=== PATIENT | female | born 1955 | race Caucasian/White ===

== ENCOUNTER 2018-04-08 13:00 | Outpatient (CLI) | payer OTHER, SELFPAY ==
--- NOTE | 2018-04-08 11:34 | DI.RAD_ITS ---
SYMPTOMS/DIAGNOSIS: ACUTE LT KNEE PAIN, POSSIBLE MENISCAL TEAR, M25.562 LEFT KNEE: Three views were obtained. There are slight degenerative changes of the joints of knee. No other abnormality is seen.
== END 2018-04-08 13:20 ==
PROVIDERS: PCP Nurse Practitioner Family; Visit Provider Family Medicine
DX: M25.562 Pain in left knee (principal)
CPT/HCPCS: 73562

== ENCOUNTER 2018-07-01 00:31 | Outpatient (CLI) | payer OTHER, SELFPAY ==
--- NOTE | 2018-07-01 07:45 | DI.MAMMO_ITS ---
SYMPTOM/DIAGNOSIS: SCREENING, Z12.31 BILATERAL SCREENING MAMMOGRAM: Mammograms were interpreted according to the usual protocol including computer analysis with CAD system, tomosynthesis and C view imaging. Comparison is made with exams from 2010 through 2016. The breasts are composed of scattered fibroglandular densities, breast density Category B. No suspicious masses or suspicious microcalcifications are seen. There has been no significant change. IMPRESSION: Category 1-B, negative mammogram. Yearly screening mammography is recommended. [facility] ASSESSMENT OF FINDINGS: Negative. Category 1. Patient will receive a letter notifying them of these results. BI-RADS category B. There are scattered areas of fibroglandular density.
== END 2018-07-01 00:51 ==
PROVIDERS: PCP Nurse Practitioner Family; Visit Provider Nurse Practitioner Family
DX: Z12.31 Encounter for screening mammogram for malignant neoplasm of breast (principal)
CPT/HCPCS: 77063; 77067

== ENCOUNTER 2019-01-01 10:17 | Outpatient (CLI) | payer OTHER, SELFPAY ==
[2019-01-01 10:55] LABS: Abs Immature Grans 0.03 k/cumm (0.0-0.09); Absolute Basophil Count 0.04 k/cumm (0.0-0.2); Absolute Eosinophil Count 0.12 k/cumm (0.0-0.7); Absolute Lymphocyte Count 2.46 k/cumm (1.2-3.4); Absolute Monocyte Count 0.49 k/cumm (0.11-0.7); Absolute Neutrophil Count 6.68 k/cumm (1.2-6.7); Basophils % 0.4; Eosinophils % 1.2; HCT 42.9 % (36.0-46.0); HGB 14.6 g/dL (12.0-15.5); Immature Grans % 0.3; Lymphocytes % 25.1; Mean Corpuscular Volume 88.1 fL (80-95); Mean Platelet Volume 9.7 fL (8.0-11.0); Platelet Count 271 x1000/uL (130-400); RBC 4.87 m/cumm (4.00-5.20); RBC Distribution Width 12.4 % (11.7-14.6); White Blood Cell Count 9.82 k/cumm (4.4-10.8)
[2019-01-01 11:43] LABS: ALT 28 U/L (12-78); AST 16 U/L (15-37); Albumin 3.7 g/dL (3.4-5.0); Alkaline Phosphatase 81 U/L (46-116); Anion Gap 7.6 mmol/L (3-11); BUN 28 mg/dL (7-18); Bilirubin, Total 0.3 mg/dL (0.2-1.0); CO2 29.4 mmol/L (21.0-32.0); COMMENT (LAB VIEW ONLY) 128.05 mg/dL; CREATININE 0.99 mg/dL (0.55-1.02); Calcium 8.9 mg/dL (8.5-10.1); Chloride 102 mmol/L (98-107); Cholesterol 120 mg/dL (50-200); Estimated GFR 56.47 (mL/min/1.73m2); Glucose 129 mg/dL (70-100); HDL Cholesterol 39 mg/dL (40-60); LDL CHOLESTEROL 58 mg/dL (<100); Microalb ug/mg Crea 10.1 ug/mg Cr; Potassium 4.5 mmol/L (3.5-5.1); Sodium 139 mmol/L (136-145); Total Protein 6.8 g/dL (6.4-8.2); Triglyceride 159 mg/dL (30-150)
[2019-01-01 11:45] LABS: Hemoglobin A1C 6.9 % (4.5-6.2)
== END 2019-01-01 10:37 ==
PROVIDERS: PCP Nurse Practitioner Family; Visit Provider Nurse Practitioner Family
DX: E78.5 Hyperlipidemia, unspecified (principal); E11.22 Type 2 diabetes mellitus with diabetic chronic kidney disease; N18.3 Chronic kidney disease, stage 3 (moderate)
CPT/HCPCS: 36415; 80053; 80061; 83721; 82043; 82570; 83036; 85025

== ENCOUNTER 2019-07-07 01:11 | Outpatient (CLI) | payer OTHER, SELFPAY ==
--- NOTE | 2019-07-07 12:09 | DI.MAMMO_ITS ---
EXAM: MG MAMMO SCREENING CLINICAL HISTORY: screening, Z12.39 TECHNIQUE: Bilateral full field digital CC and MLO mammographic images were obtained with 3D tomosyn thesis and utilizing computer aided detection (CAD). COMPARISON: Available for comparison. FINDINGS: Masses/Architectural Distortion: Scattered stable nodular densities are seen in both breasts. No dionicio picious masses are present. Microcalcifications: No suspicious pleomorphic-type are seen. Skin Thickening/Nipple Retraction: None. IMPRESSION: 1. No significant interval change with no specific features of malignancy noted. 2. Unless there is more urgent need, screening mammography is recommended, as per [employer] guidelines. ACR BI-RAD Category- 1 Negative Breast Density - Category B - Scattered areas of fibroglandular density A negative radiographic report should not delay biopsy if a dominant or clinically suspicious mass is present. Up to ten percent of cancers are not identified on mammography. A negative report may reinforce clinical impression. Adenosis and dense breasts may obscure an underlying neoplasm. False positive reports average 6 to 10%. Patient will receive a letter notifying them of these results.
== END 2019-07-07 01:31 ==
PROVIDERS: PCP Nurse Practitioner Family; Visit Provider Nurse Practitioner Family
DX: Z12.31 Encounter for screening mammogram for malignant neoplasm of breast (principal)
CPT/HCPCS: 77063; 77067

== ENCOUNTER 2019-08-14 12:53 | Outpatient (REF) | payer MEDICARE, BC, SELFPAY | END 2019-08-14 13:13 | LOC: LBN 12:53 | PROVIDERS: PCP Nurse Practitioner Family; Visit Provider Family Medicine | DX: R50.9 Fever, unspecified (principal) | CPT/HCPCS: 87449 ==

== ENCOUNTER 2020-01-07 03:33 | Outpatient (CLI) | payer MEDICARE, BC, SELFPAY ==
[2020-01-07 10:17] LABS: Hemoglobin A1C 7.2 % (3.8-5.6)
[2020-01-07 10:36] LABS: COMMENT (LAB VIEW ONLY) 175.95 mg/dL; Microalb ug/mg Crea 12.4 ug/mg Cr
[2020-01-07 11:12] LABS: Anion Gap 5.1 mmol/L (3-11); BUN 16 mg/dL (7-18); CO2 29.9 mmol/L (21.0-32.0); CREATININE 1.04 mg/dL (0.55-1.02); Calcium 9.1 mg/dL (8.5-10.1); Calculated LDL 40 mg/dL (<100); Chloride 103 mmol/L (98-107); Cholesterol 123 mg/dL (<200); Estimated GFR 53.18 (mL/min/1.73m2); Glucose 185 mg/dL (74-106); HDL Cholesterol 40 mg/dL (40-60); Potassium 4.8 mmol/L (3.5-5.1); Sodium 138 mmol/L (136-145); Triglyceride 216 mg/dL (<150)
== END 2020-01-07 03:53 ==
PROVIDERS: PCP Nurse Practitioner Family; Visit Provider Nurse Practitioner Family
DX: E78.5 Hyperlipidemia, unspecified (principal); E11.9 Type 2 diabetes mellitus without complications
CPT/HCPCS: 36415; 80048; 80061; 82043; 82570; 83036

== ENCOUNTER 2020-05-18 01:39 | Outpatient (CLI) | payer MEDICARE, BC, SELFPAY ==
--- NOTE | 2020-05-18 06:30 | DI.US_ITS ---
EXAM: US ABDOMEN CLINICAL HISTORY: RUQ abd pain, known fatty liver,r10.11 TECHNIQUE: Ultrasound abdomen performed using standard protocol. COMPARISON: No exams were available for comparison FINDINGS: ABDOMINAL AORTA AND IVC: Visualized portions normal caliber. PANCREAS: Normal where visualized. LIVER: There is diffuse increased echogenicity of the liver consistent with fatty infiltration. Hepa topedal flow in the Portal Vein. The liver measures 14.4 cm. GALLBLADDER: Status post cholecystectomy. BILIARY SYSTEM: Common bile duct measures < 7 mm. No intrahepatic biliary ductal dilation. KIDNEYS: Kidneys are symmetric in size. No evidence of renal calculi. No evidence of hydronephrosis. No renal mass or cyst identified. SPLEEN: Not enlarged. ASCITES: None seen. IMPRESSION: 1. Hepatic steatosis. 2. Status post cholecystectomy. No biliary ductal dilatation. DATA REPOSITORY:
== END 2020-05-18 01:59 ==
PROVIDERS: PCP Nurse Practitioner Family; Visit Provider Family Medicine
DX: R10.11 Right upper quadrant pain (principal); K76.0 Fatty (change of) liver, not elsewhere classified
CPT/HCPCS: 36415; 80076; 83690; 76700; 85025

== ENCOUNTER 2020-05-18 02:12 | Outpatient (CLI) | payer MEDICARE, BC, SELFPAY ==
[2020-05-18 07:49] LABS: Abs Immature Grans 0.04 10^3/uL (0.0-0.06); Absolute Basophil Count 0.04 10^3/uL (0.0-0.2); Absolute Eosinophil Count 0.12 10^3/uL (0.0-0.7); Absolute Lymphocyte Count 2.47 10^3/uL (1.2-3.4); Absolute Neutrophil Count 6.72 10^3/uL (1.2-6.7); Basophils % 0.4; Eosinophils % 1.2; HCT 42.4 % (36.0-46.0); HGB 14.2 g/dL (11.2-15.7); Immature Grans % 0.4; MCH 29.3 pg (27.0-33.0); MCHC 33.5 % (32.0-36.0); MCV 87.4 fL (80-95); MPV 9.5 fL (8.0-11.0); Monocytes % 5.1; Neutrophils % 67.9; Nucleated RBC 0 %; Platelet Count 249 10^3/uL (130-400); RBC 4.85 10^6/uL (3.93-5.22); RDW 11.8 % (11.7-14.6); RDW-SD 37.8 fL; WBC 9.89 10^3/uL (4.4-10.8)
[2020-05-18 08:34] LABS: ALT 23 U/L (14-59); AST 15 U/L (15-37); Albumin 3.6 g/dL (3.4-5.0); Alkaline Phosphatase 81 U/L (46-116); Bilirubin, Direct 0.09 mg/dL (0.00-0.20); Bilirubin, Total 0.4 mg/dL (0.2-1.0); Lipase 151 U/L (73-393); Total Protein 6.6 g/dL (6.4-8.2)
== END 2020-05-18 02:32 ==
PROVIDERS: PCP Nurse Practitioner Family; Visit Provider Nurse Practitioner Family
DX: R10.11 Right upper quadrant pain (principal)
CPT/HCPCS: 36415; 80076; 83690; 85025

== ENCOUNTER 2020-05-25 02:59 | Outpatient (CLI) | payer MEDICARE, BC, SELFPAY ==
[2020-05-25 10:23] LABS: Iron 71 ug/dL (50-170); Total Iron Binding Capacity 310 ug/dL (250-450); Transferrin Sat 23 % (15-50)
[2020-05-25 10:36] LABS: Ferritin 85 ng/mL (8-252)
[2020-05-26 09:36] LABS: HBs Antibody, Quant <3.1 mIU/mL (See Note); Hepatitis B Surface Ab Negative (See Note)
[2020-05-26 09:50] LABS: Hepatitis B Surface Ag Negative (Negative)
[2020-05-26 10:47] LABS: Hep A Total Ab w Rflx IgM Negative (Negative)
== END 2020-05-25 03:19 ==
PROVIDERS: PCP Nurse Practitioner Family; Visit Provider Nurse Practitioner Family
DX: K76.0 Fatty (change of) liver, not elsewhere classified (principal); Z11.59 Encounter for screening for other viral diseases
CPT/HCPCS: 36415; 86706; 86709; 87340; 82728; 83540; 83550; 86704

== ENCOUNTER 2021-04-19 02:49 | Outpatient (CLI) | payer MEDICARE, BC, SELFPAY ==
[2021-04-19 09:47] LABS: Abs Immature Grans 0.07 10^3/uL (0.0-0.06); Absolute Basophil Count 0.04 10^3/uL (0.0-0.2); Absolute Eosinophil Count 0.11 10^3/uL (0.0-0.7); Absolute Lymphocyte Count 2.23 10^3/uL (1.2-3.4); Absolute Neutrophil Count 6.39 10^3/uL (1.2-6.7); Basophils % 0.4; Eosinophils % 1.2; HCT 44.4 % (36.0-46.0); HGB 14.5 g/dL (11.2-15.7); Immature Grans % 0.7; Lymphocytes % 23.9; MCH 29.6 pg (27.0-33.0); MCHC 32.7 % (32.0-36.0); MCV 90.6 fL (80-95); MPV 9.6 fL (8.0-11.0); Monocytes % 5.4; Neutrophils % 68.4; Nucleated RBC 0 %; Platelet Count 257 10^3/uL (130-400); RDW 11.9 % (11.7-14.6); RDW-SD 39.7 fL; WBC 9.34 10^3/uL (4.4-10.8)
[2021-04-19 09:55] LABS: Hemoglobin A1C 7.2 % (<5.7)
[2021-04-19 09:56] LABS: Prothrombin Time 9.8 sec (9.3-11.0)
[2021-04-19 11:23] LABS: COMMENT (LAB VIEW ONLY) 34.59 mg/dL; Microalb ug/mg Crea 8.1 ug/mg Cr
[2021-04-19 11:30] LABS: ALT 33 U/L (14-59); AST 18 U/L (15-37); Albumin 4.1 g/dL (3.4-5.0); Alkaline Phosphatase 97 U/L (46-116); Anion Gap 11.4 mmol/L (3-11); BUN 21 mg/dL (7-18); Bilirubin, Total 0.5 mg/dL (0.2-1.0); CO2 25.6 mmol/L (21.0-32.0); CREATININE 1.1 mg/dL (0.55-1.02); Calcium 9.1 mg/dL (8.5-10.1); Calculated LDL 32 mg/dL (<100); Chloride 102 mmol/L (98-107); Cholesterol 142 mg/dL (<200); Estimated GFR 49.69 (mL/min/1.73m2); Glucose 170 mg/dL (74-106); HDL Cholesterol 42 mg/dL (40-60); Potassium 4.9 mmol/L (3.5-5.1); Sodium 139 mmol/L (136-145); Total Protein 7.4 g/dL (6.4-8.2); Triglyceride 340 mg/dL (<150)
== END 2021-04-19 02:50 | disposition home or self-care (01) ==
LOC: LBO 02:49
PROVIDERS: PCP Nurse Practitioner Family; Visit Provider Nurse Practitioner Family
DX: E11.22 Type 2 diabetes mellitus with diabetic chronic kidney disease; E78.5 Hyperlipidemia, unspecified; K76.0 Fatty (change of) liver, not elsewhere classified; N18.30 Chronic kidney disease, stage 3 unspecified
CPT/HCPCS: 36415; 80053; 80061; 82043; 82570; 83036; 85025; 85610

== ENCOUNTER 2021-07-07 00:15 | Outpatient (CLI) | payer MEDICARE, BC, SELFPAY ==
--- NOTE | 2021-07-07 07:15 | DI.DEXA_ITS ---
Exam(s) XR DEXA BONE DENSITY W/WO BIBIANA EXAM: XR DEXA BONE DENSITY W/WO BIBIANA CLINICAL HISTORY: SCREENING FOR OSTEOPOROSIS IN POSTMENOPAUSAL WOMAN, Z78.0,Z13.820 TECHNIQUE: COMPARISON: Comparison examination is 12/13/2009. FINDINGS: Lateral Spine Image: Unremarkable. No compression deformities identified. Left hip: Total T-Score: 0.0. This compares to 0.7 on the prior examination. Total Z-Score: 1.3 T- and Z-scores: Within normal limits. Lumbar Spine: Total T-Score: 0.1. This compares to 0.2 on the prior examination. Total Z-Score: 2.0 T- and Z-scores: Within normal limits. Note is made of osteopenia in the left forearm with a total T-score of -2.4 and a Z-score of -0.6. IMPRESSION: No evidence of osteoporosis.
--- NOTE | 2021-07-07 07:15 | DI.MAMMO_ITS ---
Exam(s) MAMMO SCREENING EXAM: MAMMO SCREENING CLINICAL HISTORY: screening,Z12.39 TECHNIQUE: Bilateral full field digital CC and MLO mammographic images were obtained with 3D tomosyn thesis and utilizing computer aided detection (CAD). COMPARISON: Available for comparison. FINDINGS: Masses/Architectural Distortion: None seen. Microcalcifications: No suspicious pleomorphic-type are seen. Skin Thickening/Nipple Retraction: None. IMPRESSION: 1. No significant interval change with no specific features of malignancy noted. 2. Unless there is more urgent need, screening mammography is recommended, as per [employer] guidelines. BI-RADS Category 1 - Negative Breast Density - Category B - Scattered areas of fibroglandular density Breast density category C or D implies that the patient has dense breast tissue. Dense breast tissue is very common and is not abnormal but dense breast tissue can make it harder to find cancer on a ma mmogram. Also, dense breast tissue may increase their breast cancer risk. This information about the result of the mammogram report was provided to the patient to raise their awareness. Use this report when you speak with the patient about their risks for breast cancer, which includes their family hist ory. At that time, you may recommend for more screening tests (Ultrasound or MRI) as they might be us eful based on their risk. A negative radiographic report should not delay biopsy if a dominant or clinically suspicious mass is present. Up to ten percent of cancers are not identified on mammography. A negative report may reinforce clinical impression. Adenosis and dense breasts may obscure an underlying neoplasm. False positive reports average 6 to 10%. Patient will receive a letter notifying them of these results.
== END 2021-07-07 00:35 ==
PROVIDERS: PCP Nurse Practitioner Family; Visit Provider Nurse Practitioner Family
DX: Z12.39 Encounter for other screening for malignant neoplasm of breast (principal); Z13.820 Encounter for screening for osteoporosis; Z78.0 Asymptomatic menopausal state; M85.88 Other specified disorders of bone density and structure, other site
CPT/HCPCS: 77063; 77067; 77080

== ENCOUNTER → 2021-12-19 13:19 | Outpatient (BNVA) | payer MEDICARE, BC, SELFPAY | PROVIDERS: PCP Nurse Practitioner Family; Referring Provider Nurse Practitioner Family; Visit Provider Physician Assistant | DX: M77.11 Lateral epicondylitis, right elbow (principal) | CPT/HCPCS: 99202 ==

== ENCOUNTER → 2022-02-21 12:47 | Outpatient (BNVA) | payer MEDICARE, BC, SELFPAY | PROVIDERS: PCP Nurse Practitioner Family; Referring Provider Nurse Practitioner Family; Visit Provider Student in an Organized Health Care Education/Training Program | DX: M77.11 Lateral epicondylitis, right elbow (principal) | CPT/HCPCS: 20550; 99214; J1030 ==

== ENCOUNTER → 2022-03-08 01:54 | Outpatient (CLI) | payer MEDICARE, BC, SELFPAY ==
--- NOTE | 2022-03-08 07:45 | DI.CT_ITS ---
Exam(s) CT HEAD WO EXAM: CT HEAD WO CLINICAL HISTORY: F/U [facility], [facility] 02/06/22,Z86.89. TECHNIQUE: Imaging Protocol: Axial computed tomography images with coronal and sagittal reformatted images were created and reviewed COMPARISON: Comparison is made with report of a head CT from [facility] in [place] dated 07 February 2022. no images are available for comparison FINDINGS: There is no evidence of acute hemorrhage. There is an area of encephalomalacia in the right frontal lobe inferiorly. This measures approximately 17 x 25 millimeters. There is no residual subdural hem orrhage. There is no skull fracture. There is a area of scarring in the right frontal scalp. There is no significant atrophy. The ventricles are normal in size. There is a minimal amount of mucous retention at the floor of the left maxillary sinus. The mastoid air cells appear clear. 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 Resolut ion of subdural hemorrhage. No acute intracranial process. RADIATION DOSE DELIVERED: 742.29mGy.cm Total DLP DATA REPOSITORY: All CT scans at this facility are submitted to the National Radiology Data Registry (NRDR) Dose Index Registry (DIR) with the [employer] (ACR). RADIATION OPTIMIZATION: All CT scans at this facility use at least one of these dose optimization te chniques: automated exposure control; mA and/or kV adjustment per patient size (includes targeted exa ms where dose is matched to clinical indication); or iterative reconstruction.
== END ==
PROVIDERS: PCP Nurse Practitioner Family; Visit Provider Nurse Practitioner
DX: G93.89 Other specified disorders of brain; Z86.79 Personal history of other diseases of the circulatory system
CPT/HCPCS: 70450

== ENCOUNTER 2022-05-02 03:23 | Outpatient (CLI) | payer MEDICARE, BC, SELFPAY ==
[2022-05-02 09:41] LABS: Abs Immature Grans 0.04 10^3/uL (0.0-0.06); Absolute Basophil Count 0.03 10^3/uL (0.0-0.2); Absolute Lymphocyte Count 2.44 10^3/uL (1.2-3.4); Absolute Monocyte Count 0.48 10^3/uL (0.1-0.8); Absolute Neutrophil Count 5.45 10^3/uL (1.2-6.7); Basophils % 0.4; Eosinophils % 1.2; HGB 14.1 g/dL (11.2-15.7); Immature Grans % 0.5; Lymphocytes % 28.6; MCH 29.4 pg (27.0-33.0); MCHC 33.6 % (32.0-36.0); MCV 88 fL (80-95); Monocytes % 5.6; Neutrophils % 63.7; Platelet Count 247 10^3/uL (130-400); RBC 4.79 10^6/uL (3.93-5.22); RDW-SD 38.7 fL; WBC 8.54 10^3/uL (4.4-10.8)
[2022-05-02 10:40] LABS: COMMENT (LAB VIEW ONLY) 175.19 mg/dL; Microalb ug/mg Crea 5.7 ug/mg Cr
[2022-05-02 10:42] LABS: ALT 27 U/L (14-59); AST 18 U/L (15-37); Albumin 3.6 g/dL (3.4-5.0); Alkaline Phosphatase 81 U/L (46-116); Anion Gap 8.4 mmol/L (3-11); BUN 17 mg/dL (7-18); Bilirubin, Total 0.5 mg/dL (0.2-1.0); CO2 29.6 mmol/L (21.0-32.0); Calcium 9.1 mg/dL (8.5-10.1); Calculated LDL 45 mg/dL (<100); Chloride 101 mmol/L (98-107); Cholesterol 134 mg/dL (<200); Estimated GFR 61.75 (mL/min/1.73m2); Glucose 177 mg/dL (74-106); HDL Cholesterol 44 mg/dL (40-60); Potassium 4.5 mmol/L (3.5-5.1); Sodium 139 mmol/L (136-145); Total Protein 7.4 g/dL (6.4-8.2); Triglyceride 227 mg/dL (<150)
== END 2022-05-02 03:24 | disposition home or self-care (01) ==
LOC: LBO 03:23
PROVIDERS: PCP Nurse Practitioner Family; Visit Provider Nurse Practitioner Family
DX: E11.22 Type 2 diabetes mellitus with diabetic chronic kidney disease; K76.0 Fatty (change of) liver, not elsewhere classified; E78.5 Hyperlipidemia, unspecified; N18.30 Chronic kidney disease, stage 3 unspecified; Z51.81 Encounter for therapeutic drug level monitoring
CPT/HCPCS: 36415; 80053; 80061; 82043; 82570; 83036; 85025

== ENCOUNTER → 2022-07-11 02:10 | Outpatient (CLI) | payer MEDICARE, BC, SELFPAY ==
--- NOTE | 2022-07-11 07:45 | DI.MAMMO_ITS ---
Exam(s) MAMMO SCREENING EXAM: MAMMO SCREENING CLINICAL HISTORY: screening,Z12.39 TECHNIQUE: Mammograms were interpreted according to the usual protocol including computer analysis w [employer] CAD system, tomosynthesis and C-view imaging. COMPARISON: FINDINGS: The breasts are of moderate density with fairly symmetrical distribution of fibroglandular tissue. N o dominant mass or clumped microcalcification is identified in either breast. The current examinatio n is compared with previous examinations including July 2021 and there has been no gross interval change in appearance in comparison with the prior studies. IMPRESSION: No specific evidence of malignancy at this time. Routine screening examinations are suggested at yea rly intervals in this age group according to the ACS ACR guidelines. BI-RADS Category 1 - Negative Breast Density - Category B - Scattered areas of fibroglandular density
== END ==
PROVIDERS: PCP Nurse Practitioner Family; Visit Provider Nurse Practitioner Family
DX: Z12.31 Encounter for screening mammogram for malignant neoplasm of breast (principal)
CPT/HCPCS: 77063; 77067

== ENCOUNTER 2023-01-29 02:02 | Outpatient (CLI) | payer MEDICARE, BC, SELFPAY ==
[2023-01-29 14:58] LABS: Anion Gap 9.9 mmol/L (3-11); BUN 20 mg/dL (7-18); CO2 28.1 mmol/L (21.0-32.0); Calcium 9.3 mg/dL (8.5-10.1); Chloride 102 mmol/L (98-107); Estimated GFR 61.36 (mL/min/1.73m2); Glucose 154 mg/dL (74-106); Potassium 4.1 mmol/L (3.5-5.1); Sodium 140 mmol/L (136-145)
== END 2023-01-29 02:03 | disposition home or self-care (01) ==
PROVIDERS: PCP Nurse Practitioner Family; Visit Provider Nurse Practitioner Family
DX: N18.30 Chronic kidney disease, stage 3 unspecified (principal); Z51.81 Encounter for therapeutic drug level monitoring; Z79.899 Other long term (current) drug therapy
CPT/HCPCS: 36415; 80048

== ENCOUNTER 2023-04-17 03:15 | Outpatient (CLI) | payer MEDICARE, BC, SELFPAY ==
[2023-04-17 09:57] LABS: Abs Immature Grans 0.04 10^3/uL (0.0-0.06); Absolute Basophil Count 0.03 10^3/uL (0.0-0.2); Absolute Eosinophil Count 0.07 10^3/uL (0.0-0.7); Absolute Lymphocyte Count 2.13 10^3/uL (1.2-3.4); Absolute Monocyte Count 0.39 10^3/uL (0.1-0.8); Absolute Neutrophil Count 4.83 10^3/uL (1.2-6.7); Basophils % 0.4; Eosinophils % 0.9; HCT 43.4 % (36.0-46.0); HGB 14.4 g/dL (11.2-15.7); Immature Grans % 0.5; Lymphocytes % 28.4; MCH 29.4 pg (27.0-33.0); MCHC 33.2 % (32.0-36.0); MCV 89 fL (80-95); MPV 9.4 fL (8.0-11.0); Monocytes % 5.2; Neutrophils % 64.6; Platelet Count 268 10^3/uL (130-400); RBC 4.89 10^6/uL (3.93-5.22); RDW-SD 38.7 fL; WBC 7.49 10^3/uL (4.4-10.8)
[2023-04-17 10:09] LABS: Hemoglobin A1C 7.3 % (<5.7)
[2023-04-17 10:35] LABS: ALT 20 U/L (14-59); AST 12 U/L (15-37); Albumin 3.6 g/dL (3.4-5.0); Alkaline Phosphatase 86 U/L (46-116); Anion Gap 5.6 mmol/L (3-11); BUN 19 mg/dL (7-18); Bilirubin, Total 0.4 mg/dL (0.2-1.0); CO2 30.4 mmol/L (21.0-32.0); CREATININE 1.1 mg/dL (0.55-1.02); Calcium 9.2 mg/dL (8.5-10.1); Calculated LDL 38 mg/dL (<100); Chloride 102 mmol/L (98-107); Cholesterol 134 mg/dL (<200); Estimated GFR 54.73 (mL/min/1.73m2); Glucose 278 mg/dL (74-106); HDL Cholesterol 45 mg/dL (40-60); Potassium 4.1 mmol/L (3.5-5.1); Sodium 138 mmol/L (136-145); Total Protein 7.3 g/dL (6.4-8.2); Triglyceride 258 mg/dL (<150)
[2023-04-17 10:44] LABS: COMMENT (LAB VIEW ONLY) 31.79 mg/dL; Microalb ug/mg Crea 23.9 ug/mg Cr
== END 2023-04-17 03:16 | disposition home or self-care (01) ==
LOC: LBO 03:15
PROVIDERS: PCP Nurse Practitioner Family; Visit Provider Nurse Practitioner Family
DX: K76.0 Fatty (change of) liver, not elsewhere classified (principal); E11.9 Type 2 diabetes mellitus without complications; E78.5 Hyperlipidemia, unspecified; E11.22 Type 2 diabetes mellitus with diabetic chronic kidney disease
CPT/HCPCS: 36415; 80053; 80061; 82043; 82570; 83036; 85025

== ENCOUNTER → 2023-07-17 01:35 | Outpatient (CLI) | payer MEDICARE, BC, SELFPAY ==
--- NOTE | 2023-07-17 07:30 | DI.MAMMO_ITS ---
Exam(s) MAMMO SCREENING EXAM: MAMMO SCREENING CLINICAL HISTORY: screening,z12.39 TECHNIQUE: Mammograms were interpreted according to the usual protocol including computer analysis w [employer] CAD system, tomosynthesis and C-view imaging. COMPARISON: 2013 through 2021 FINDINGS: The breasts are composed of scattered fibroglandular densities, Breast Density category B. No suspicious masses or suspicious microcalcifications are seen. No skin thickening or abnormal axillary lymph nodes are seen. There has been no significant change from prior exams. IMPRESSION: BI-RADS Category 1, Negative mammogram Yearly screening mammography is recommended. Breast Density - Category B, scattered fibroglandular densities. A negative radiographic report should not delay biopsy if a dominant or clinically suspicious mass is present. Up to ten percent of cancers are not identified on mammography. A negative report may reinforce clinical impression. Adenosis and dense breasts may obscure an underlying neoplasm. False positive reports average 6 to 10%. Patient will receive a letter notifying them of these results.
== END ==
PROVIDERS: PCP Nurse Practitioner Family; Visit Provider Nurse Practitioner Family
DX: Z12.31 Encounter for screening mammogram for malignant neoplasm of breast (principal)
CPT/HCPCS: 77063; 77067

== ENCOUNTER 2024-01-15 01:33 | Outpatient (CLI) | payer MEDICARE, BC, SELFPAY ==
[2024-01-15 12:31] LABS: ALT 26 U/L (14-59); AST 11 U/L (15-37); Albumin 3.9 g/dL (3.4-5.0); Alkaline Phosphatase 76 U/L (46-116); BUN 15 mg/dL (7-18); Bilirubin, Total 0.5 mg/dL (0.2-1.0); Calcium 9.1 mg/dL (8.5-10.1); Calculated LDL 54 mg/dL (<100); Chloride 102 mmol/L (98-107); Cholesterol 136 mg/dL (<200); Estimated GFR 60.98 (mL/min/1.73m2); Glucose 128 mg/dL (74-106); HDL Cholesterol 51 mg/dL (40-60); Magnesium 1.6 mg/dL (1.8-2.4); Potassium 4.7 mmol/L (3.5-5.1); Sodium 140 mmol/L (136-145); Total Protein 7.4 g/dL (6.4-8.2); Triglyceride 158 mg/dL (<150)
== END 2024-01-15 01:34 | disposition home or self-care (01) ==
LOC: LBO 01:34
PROVIDERS: PCP Nurse Practitioner; Visit Provider Nurse Practitioner
DX: E11.22 Type 2 diabetes mellitus with diabetic chronic kidney disease; E78.49 Other hyperlipidemia
CPT/HCPCS: 36415; 80053; 80061; 83735

== ENCOUNTER 2024-07-22 02:46 | Outpatient (CLI) | payer MEDICARE, BC, SELFPAY ==
--- NOTE | 2024-07-22 11:54 | DI.MAMMO_ITS ---
Exam(s) MAMMO SCREENING EXAM: MAMMO SCREENING CLINICAL HISTORY: screening,z12.39 TECHNIQUE: Bilateral full field digital CC and MLO mammographic images were obtained with 3D tomosyn thesis and utilizing computer aided detection (CAD). COMPARISON: Available for comparison. FINDINGS: Masses/Architectural Distortion: There is a stable nodule in the inferior left breast. No new nodule s are seen. No areas of architectural distortion are present. Microcalcifications: No suspicious pleomorphic-type are seen. Skin Thickening/Nipple Retraction: None. IMPRESSION: 1. No significant interval change with no specific features of malignancy noted. 2. Unless there is more urgent need, screening mammography is recommended, as per [employer] guidelines. BI-RADS Category 1 - Negative Breast Density - Category B - Scattered areas of fibroglandular density Breast density category C or D implies that the patient has dense breast tissue. Dense breast tissue is very common and is not abnormal but dense breast tissue can make it harder to find cancer on a ma mmogram. Also, dense breast tissue may increase their breast cancer risk. This information about the result of the mammogram report was provided to the patient to raise their awareness. Use this report when you speak with the patient about their risks for breast cancer, which includes their family hist ory. At that time, you may recommend for more screening tests (Ultrasound or MRI) as they might be us eful based on their risk. A negative radiographic report should not delay biopsy if a dominant or clinically suspicious mass is present. Up to ten percent of cancers are not identified on mammography. A negative report may reinforce clinical impression. Adenosis and dense breasts may obscure an underlying neoplasm. False positive reports average 6 to 10%. Patient will receive a letter notifying them of these results.
== END 2024-07-22 03:06 ==
LOC: DI 02:46
PROVIDERS: PCP Nurse Practitioner; Visit Provider Nurse Practitioner
DX: Z12.31 Encounter for screening mammogram for malignant neoplasm of breast (principal); R92.323 Mammographic fibroglandular density, bilateral breasts
CPT/HCPCS: 77063; 77067

== ENCOUNTER 2024-11-05 03:33 | Outpatient (CLI) | payer MEDICARE, BC, SELFPAY ==
[2024-11-05 09:51] LABS: Hemoglobin A1C 6.5 % (<5.7)
[2024-11-05 10:21] LABS: ALT 25 U/L (14-59); AST 16 U/L (15-37); Albumin 3.9 g/dL (3.4-5.0); Alkaline Phosphatase 81 U/L (46-116); BUN 20 mg/dL (7-18); Bilirubin, Total 0.7 mg/dL (0.2-1.0); CREATININE 1.1 mg/dL (0.55-1.02); Calcium 9.6 mg/dL (8.5-10.1); Calculated LDL 49 mg/dL (<100); Chloride 102 mmol/L (98-107); Cholesterol 144 mg/dL (<200); Estimated GFR 54.06 (mL/min/1.73m2); Glucose 138 mg/dL (74-106); HDL Cholesterol 49 mg/dL (>or=50); Potassium 4.4 mmol/L (3.5-5.1); Sodium 141 mmol/L (136-145); Total Protein 7.4 g/dL (6.4-8.2); Triglyceride 231 mg/dL (<150)
[2024-11-05 10:41] LABS: COMMENT (LAB VIEW ONLY) 63.35 mg/dL
== END 2024-11-05 03:34 | disposition home or self-care (01) ==
PROVIDERS: PCP Nurse Practitioner; Visit Provider Nurse Practitioner Adult Health
DX: N18.30 Chronic kidney disease, stage 3 unspecified (principal); K76.0 Fatty (change of) liver, not elsewhere classified; E78.49 Other hyperlipidemia; E11.22 Type 2 diabetes mellitus with diabetic chronic kidney disease
CPT/HCPCS: 36415; 80053; 80061; 82043; 82570; 83036

== ENCOUNTER 2025-03-23 01:31 | Outpatient (CLI) | payer MEDICARE, BC, SELFPAY ==
--- NOTE | 2025-03-23 07:00 | DI.CT_ITS ---
Exam(s) CT CHEST WO EXAM: CT CHEST WO CLINICAL HISTORY: abn findings on CT scan in [place]- see report,CHEST PAIN,R07.9. TECHNIQUE: Multi planar reconstructions were performed. CONTRAST MATERIAL: None COMPARISON: Cervical spine CT scan report from [facility] was reviewed. That CT scan mention some possibly significant findings in the lung apices. FINDINGS: CHEST: LUNGS: There are no confluent infiltrates nor pleural effusions. However, there is a noncalcified spiculated subpleural nodule in the lateral basal segment of the left lower lobe measuring 7 mm. There is also another smaller 5 millimeter nodule slightly higher up in the posterior basal segment of the left lower lobe. There is also a noncalcified nodule in the anterior segment of the right upper lobe which measures 5 mm. This, however, is fissure related. There are no other nodular densities noted in lung palacio. There are no significant findings in the lung apices at this time (as mentioned on the outside cervical spine report). There are no significant focal findings in the trachea and mainstem bronchi. There is no bronchiectasis MEDIASTINUM: There is no obvious hilar nor mediastinal adenopathy. Visualized thyroid unremarkable.No supraclavicular adenopathy and no incidental axillary adenopathy evident. CARDIAC: Size is normal. There is very mild thickening of the pericardium. There is no prominent pericardial effusion.Caliber of the thoracic aorta is within normal limits. No significant dilatation of the thoracic aorta. VISUALIZED UPPER ABDOMEN:No adrenal masses. Gallbladder surgically absent. Spleen size normal. OSSEOUS: No significant osseous lesions.No fractures.. IMPRESSION: 1. There are no significant findings in the lung apices to correspond to what was mentioned on at a prior cervical spine CT scan performed in [place] in February 2022. 2. However, there are noncalcified lung nodules as described above, the most significant being in the left lower lobe measuring up to 7 mm and appearing somewhat spiculated. This requires close follow-up including repeat CT scan in 3 months/appropriate referral. 3. There are no pleural effusions nor intrathoracic adenopathy. 4. There is mild thickening of the pericardium. There is no prominent pericardial effusion. RADIATION DOSE DELIVERED: 201.5mGy.cm Total DLP DATA REPOSITORY: All CT scans at this facility are submitted to the National Radiology Data Registry (NRDR) Dose Index Registry (DIR) with the [employer] (ACR). RADIATION OPTIMIZATION: All CT scans at this facility use at least one of these dose optimization techniques: automated exposure control; mA and/or kV adjustment per patient size (includes targeted exams where dose is matched to clinical indication); or iterative reconstruction.
== END 2025-03-23 01:51 ==
LOC: DI 01:31
PROVIDERS: PCP Nurse Practitioner Family; Visit Provider Nurse Practitioner Family
DX: R07.9 Chest pain, unspecified (principal)
CPT/HCPCS: 71250

== ENCOUNTER → 2025-04-07 09:45 | Outpatient (BNVA) | payer MEDICARE, BC, SELFPAY | PROVIDERS: PCP Nurse Practitioner Family; Referring Provider Nurse Practitioner Family; Visit Provider Internal Medicine Pulmonary Disease | DX: R91.1 Solitary pulmonary nodule (principal) | CPT/HCPCS: 99205 ==

== ENCOUNTER 2025-06-11 00:58 | Outpatient (CLI) | payer MEDICARE, BC, SELFPAY ==
--- NOTE | 2025-06-11 12:42 | W.NUTRFU ---
Documented by User: Aubree Bradshaw 06/16/25 10:04 Date of service: 06/11/25 Time of Service: 11:30 Nutrition Note NOTE: Met with pt in person. 69 yr old female pt presents for hepatic steatosis MNT. PMH of type 2 DM, hyperlipidemia, CKD3, per provider note. Reports 3 meals a day with snacks in between, drinks water, seltzer, low-fat milk, coffee, tea. Cooks with olive oil and canola oil. Frequent savage, loves to make cookies, cakes, pies, etc. When she bakes, she adds less sugar than what the recipe calls for. Does all of the cooking for herself and . Has a garden, grows/eats a lot of her own vegetables. Reviewed importance of limiting carbs, especially added sugars and incorporating low-fat foods. Together we set these goals for her to work on. Pt is feeling confident she can start working towards these goals. 1) incorporate a chickpea pasta one night this week, increase gradually until she feels comfortable transitioning completely to nutrient-dense pastas 2) instead of 2 cookies a day, have fruit dipped with 1 tsp of melted chocolate Pt is aware she can contact the dietitian for any questions or follow-up appointment. Documented by User: Jonathon Michelle RDN 06/16/25 10:04 Nutrition Note Time Spent in Nutritional Counseling and Treatment: 25
== END 2025-06-11 00:59 | disposition home or self-care (01) ==
LOC: DS 00:58
PROVIDERS: PCP Nurse Practitioner Family; Visit Provider Dietitian, Registered
DX: K76.0 Fatty (change of) liver, not elsewhere classified (principal); E11.22 Type 2 diabetes mellitus with diabetic chronic kidney disease; E78.5 Hyperlipidemia, unspecified
CPT/HCPCS: 00123; 97802